=== PATIENT | male | born 1965 | race Caucasian/White ===

== ENCOUNTER 2021-04-09 12:38 | Outpatient (CLI) | payer BC | END 2021-04-09 12:39 | disposition home or self-care (01) | LOC: CSHULT 12:38 | PROVIDERS: ATTEND Family Medicine | DX: R79.89 Other specified abnormal findings of blood chemistry (principal) | CPT/HCPCS: 93970 ==

== ENCOUNTER 2022-01-09 12:21 | Emergency (ER) | payer BC | END 2022-01-09 14:00 | disposition home or self-care (01) | LOC: CSHERS 12:21 | DX: S06.9X9A Unspecified intracranial injury with loss of consciousness of unspecified duration, initial encounter (principal); I10 Essential (primary) hypertension; Y04.0XXA Assault by unarmed brawl or fight, initial encounter | CPT/HCPCS: 70450 ==

== ENCOUNTER 2023-12-28 08:30 | Inpatient (IN) | payer BC ==
[2024-01-04] MEDS ORDERED: Rocuronium Bromide 10 MG/ML (10ML VIAL) ONE (09:33)
[2024-01-04] MEDS ORDERED: fentaNYL 50 mcg/mL 1 mL Vial ONE (09:33)
[2024-01-04] MEDS ORDERED: Lidocaine 1% PF 5 ML VIAL ONE (09:33)
[2024-01-04] MEDS ORDERED: PROPOFOL 20 ML ONE (09:33)
[2024-01-04] MEDS ORDERED: Midazolam HCl 2 mg/2 ml Vial ONE (09:55)
[2024-01-04] MEDS ORDERED: Dexamethasone 20 MG/5 ML VIAL ONE (10:49)
[2024-01-04] MEDS ORDERED: ePHEDrine Sulfate 50 MG/10 ML VIAL ONE (10:56)
[2024-01-04] MEDS ORDERED: Bupivacaine/Epinephrine 0.25% 30 ML VIAL ONE (11:04)
[2024-01-04] MEDS ORDERED: SUGAMMADEX SODIUM 200 MG/2 ML VIAL ONE (14:04)
[2024-01-04] MEDS ORDERED: Fentanyl 250 MCG/5 ML VIAL ONE (14:07)
[2024-01-04] MEDS ORDERED: Ondansetron PF 4 MG/2 ML Vial ONE (14:12)
[2024-01-04 15:35] VITALS: BMI 35.2
[2024-01-04] MEDS ORDERED: Dextrose 5% in Water 1,000 ML IV PRN (15:36)
[2024-01-04] MEDS ORDERED: Dextrose 50% Abboject 50 ML SYRINGE SLOW IVP PRN (15:36)
[2024-01-04] MEDS ORDERED: traMADol HCl 50 MG TAB PO PRN (15:36)
[2024-01-04] MEDS ORDERED: Ondansetron PF 4 MG/2 ML Vial IVP PRN (15:36)
[2024-01-04] MEDS ORDERED: Promethazine HCl 25 MG/ML VIAL IM PRN (15:36)
[2024-01-04] MEDS ORDERED: Glucagon 1 MG/ML KIT IM PRN (15:36)
[2024-01-04] MEDS ORDERED: Ipratropium/Albuterol 3 ML NEB NEB PRN (15:36)
[2024-01-04] MEDS ORDERED: hydrALAZINE 20 MG/ML VIAL SLOW IVP PRN (15:36)
[2024-01-04] MEDS ORDERED: fentaNYL 50 mcg/mL 1 mL Vial SLOW IVP PRN ×2 (16:03)
[2024-01-04] MEDS: D5 1/2 NS w/20 mEq KCL 1,000 ML IV SCH (16:07)
[2024-01-04] MEDS: Acetaminophen 500 MG TAB PO SCH (16:09)
[2024-01-04] MEDS: Ketorolac Tromethamine 30 MG (1 mL) VIAL IVP SCH (16:15)
[2024-01-04] MEDS: traMADol HCl 50 MG TAB PO PRN (18:24)
[2024-01-04] MEDS: Ketorolac Tromethamine 30 MG (1 mL) VIAL ONE (18:26)
[2024-01-04] MEDS: Famotidine 20 MG TAB PO SCH (20:40)
[2024-01-04] MEDS ORDERED: Famotidine/PF 20 mg/2ml Vial SLOW IVP PRN (21:00)
[2024-01-05 04:04] LABS: #Basophils 0.01 10x3/uL (0.0-0.2); #Monocytes 0.65 10x3/uL (0.0-1.1); #Neutrophils 10.51 10x3/uL (1.5-8.4); %Basophils 0.1 % (0.0-2.0); %Lymphocytes 8.1 % (18.0-47.0); %Monocytes 5.3 % (0.0-10.0); %Neutrophils 85.9 % (40.0-75.0); Hematocrit 39.8 % (38.8-50.0); Hemoglobin 13.3 g/dL (13.5-17.5); Mean Corpuscular HGB CONC 33.4 g/dL (32.0-36.0); Mean Corpuscular Hemoglobin 27.8 pg (27.0-33.0); Mean Corpuscular Volume 83.3 fL (81.2-95.1); Mean Platelet Volume 9.3 fL (7.4-10.4); Platelet Count 187 10x3/uL (150-450); RBC Distribution Width 11.8 % (11.5-14.5); Red Blood Cell (RBC) Count 4.78 10x6/uL (4.32-5.72); White Blood Cell (WBC) Count 12.2 10x3/uL (3.5-10.5)
[2024-01-05] MEDS: Levothyroxine Sodium 112 MCG TAB PO SCH (05:52)
[2024-01-05 08:46] VITALS: BP 130/63; TEMP 96.3
[2024-01-05] MEDS: Acetaminophen 500 MG TAB PO SCH (08:49)
[2024-01-05] MEDS: Lisinopril 10 MG TAB PO SCH (08:50)
[2024-01-05] MEDS: Levothyroxine Sodium 25 MCG TAB PO SCH (08:53)
[2024-01-05] MEDS ORDERED: FLU (Fluarix Triv) TS24-25(6MOS UP)/PF 45 MCG/0.5 ML Syringe IM ONE (09:00)
== END 2024-01-05 12:36 | disposition home or self-care (01) | DRG 355 ==
LOC: CSHTELE 01-04 06:49 → EDSTATUS 01-04 08:30 → CSHTELE 01-04 14:59
PROVIDERS: ADMIT Surgery; ATTEND Surgery
PROC: 0WUF4JZ Supplement Abdominal Wall with Synthetic Substitute, Percutaneous Endoscopic Approach (ICD-10-PCS; principal; 2024-01-04)
PROC: 8E0W4CZ Robotic Assisted Procedure of Trunk Region, Percutaneous Endoscopic Approach (ICD-10-PCS; 2024-01-04)
PROC: 0KX Muscles, Transfer (ICD-10-PCS; 2024-01-04)
PROC: 0KX Muscles, Transfer (ICD-10-PCS; 2024-01-04)
DX: K43.2 Incisional hernia without obstruction or gangrene (principal); E03.9 Hypothyroidism, unspecified; I10 Essential (primary) hypertension; M10.9 Gout, unspecified; Z88.8 Allergy status to other drugs, medicaments and biological substances; Z79.899 Other long term (current) drug therapy
CPT/HCPCS: 36415; 85025; 94762; 94799; J1100; J1885; J2250; J2405; J2704; J3010; J3480

== ENCOUNTER 2024-01-02 08:10 | Outpatient (CLI) | payer BC ==
[2024-01-02 09:41] LABS: #Basophils 0.03 10x3/uL (0.0-0.2); #Eosinphils 0.11 10x3/uL (0.0-0.5); #Monocytes 0.37 10x3/uL (0.0-1.1); #Neutrophils 3.15 10x3/uL (1.5-8.4); %Basophils 0.5 % (0.0-2.0); %Eosinophils 1.9 % (0.0-6.0); %Lymphocytes 35.6 % (18.0-47.0); %Monocytes 6.4 % (0.0-10.0); %Neutrophils 54.7 % (40.0-75.0); Hematocrit 48.3 % (38.8-50.0); Hemoglobin 15.9 g/dL (13.5-17.5); Mean Corpuscular HGB CONC 32.9 g/dL (32.0-36.0); Mean Corpuscular Hemoglobin 27.7 pg (27.0-33.0); Mean Platelet Volume 9.3 fL (7.4-10.4); Platelet Count 193 10x3/uL (150-450); RBC Distribution Width 11.9 % (11.5-14.5); Red Blood Cell (RBC) Count 5.75 10x6/uL (4.32-5.72); White Blood Cell (WBC) Count 5.8 10x3/uL (3.5-10.5)
[2024-01-02 10:16] LABS: Anion Gap 15 mmol/L (10-20); BUN (Urea Nitrogen) 9 mg/dL (8.4-25.7); Calc. Creatinine Clearance 0 mL/min (70-130); Carbon Dioxide 25 mmol/L (22-29); Chloride 105 mmol/L (98-107); Estimated GFR 78; Glucose 102 mg/dL (70-105); Potassium 4.8 mmol/L (3.5-5.1); Sodium 140 mmol/L (136-145)
== END 2024-01-02 08:11 | disposition home or self-care (01) ==
LOC: CSHLAB 08:10
PROVIDERS: ATTEND Surgery
DX: Z01.818 Encounter for other preprocedural examination (principal); K43.2 Incisional hernia without obstruction or gangrene
CPT/HCPCS: 80048; 85025; 93005; 93010